=== PATIENT | female | born 1955 | race Caucasian/White ===

== ENCOUNTER 2018-08-05 20:46 | Emergency (ER) | payer MEDICAID ==
[~2018-08-05] VITALS: Wt 63.4 kg
[~2018-08-05 20:46] MED LIST: ASPI81TA52 PO; IBUP200C11 PO; MECL25TA2 PO; METF100010 PO; OMEP20CA16 PO
[2018-08-06] MEDS ORDERED: HYDROCODONE/APAP (5/325) TAB PO ONE (01:00)
[2018-08-06] MEDS ORDERED: IBUPROFEN 200 MG TAB PO ONE (01:00)
--- NOTE | 2018-08-06 01:01 | ERD ---
ER Documentation Chief Complaint Chief Complaint bib self, cc: fell at home while changing socks, has lower back pain, HPI 63-year-old female, with history of rheumatoid arthritis, presents the emergency department, complaining of mid upper back pain after sustaining a ground-level fall that occurred in her bathroom yesterday, while the patient was getting dressed. She landed on her back, hitting the border of the bathtub. The patient denies distal weakness, numbness or tingling, she has been taking Tylenol without improvement of the symptoms. ROS All systems reviewed and are negative except as per history of present illness. Medications Home Meds Active Scripts Ibuprofen* (Motrin*) 400 Mg Tab, 400 MG PO Q8, #15 TAB Prov:DALTON MYLES MD 08/06/18 Hydrocodone/Acetaminophen ([place] 5-325 Tablet) 1 Each Tablet, 1 TAB PO BID PRN for PAIN, #10 TAB Prov:DALTON MYLES MD 08/06/18 Meclizine Hcl* (Antivert*) 25 Mg Tablet, 25 MG PO Q6H PRN for dizziness, #20 TAB Prov:ALIX WASSERMAN MD 05/11/15 Reported Medications Aspirin (Low Dose Aspirin) 81 Mg Tablet.dr, 81 MG PO DAILY 05/11/15 Metformin Hcl* (Metformin Hcl*) 1,000 Mg Tablet, 1000 MG PO BID WITH MEALS, #30 TAB 05/11/15 Ibuprofen* (Advil*) 200 Mg Capsule, 200 MG PO Q6H PRN for PAIN, CAP 05/11/15 Omeprazole* (Omeprazole*) 20 Mg Capsule.dr, 20 MG PO DAILY, CAP 05/11/15 Allergies Allergies: Coded Allergies: No Known Allergy (Verified , 05/11/15) PMhx/Soc History of Surgery: Yes (GALLBLADDER SURGERY 12 YRS AGO) Hx Neurological Disorder: No Hx Respiratory Disorders: No Hx Cardiac Disorders: No Hx Miscellaneous Medical Probl: Yes (HIGH CHOLESTEROL, ARTHRITIS) Hx Alcohol Use: No Hx Substance Use: No Hx Tobacco Use: No FmHx Family History: diabetes; No coronary disease Physical Exam Vitals Vital Signs Date Temp Pulse Resp B/P (MAP) Pulse Ox O2 O2 Flow FiO2 Time Delivery Rate 08/06/18 98.1 69 18 128/73 96 Room Air 04:10 (91) 3/4/19 99.4 81 19 143/72 100 20:59 (95) Physical Exam Patient is in no acute distress, vital signs stable. Alert and fully oriented. EYES: PERRLA, EOMI, Sclera and conjunctiva appear normal. EARS: Canals clear, tympanic membranes WNL THROAT: Normal oropharynx. NECK: Supple, No lymphadenopathy. Full ROM without pain or tenderness. HEART: RRR, no rubs, murmurs, clicks or gallops. LUNGS: Clear to auscultation. ABDOMEN: Soft, non-tender without masses or hepatosplenomegaly. EXTREMITIES: No edema bilaterally. BACK: Normal inspection, no deformity, decreased range of motion for lateral rotation and flexion. Diffuse mid upper vertebral tenderness, bilateral lower muscle spasm. NEURO: Cranial nerves grossly intact, no motor or sensory deficit Results 24 hrs Current Medications Medications Dose Sig/Brendon Start Time Status Last (Trade) Ordered Route PRN Stop Time Admin Dose Reason Admin 1 tab ONCE ONCE 08/06/18 DC 08/06/18 Acetaminophen PO 01:00 08/06/18 01:14 / 01:08 Hydrocodone Bitart ([place] (5/325)) Ibuprofen 400 mg ONCE ONCE 08/06/18 DC 08/06/18 (Motrin) PO 01:00 08/06/18 01:14 01:08 DIAGNOSTIC IMAGING REPORT Patient: JAMIE MAGALLANES : 1955 Age: 63 Sex: F MR #: [id number] DOS: 08/06/18 0058 Ordering MD: DALTON MYLES MD Location: [facility] Room/Bed: PROCEDURE: CT thoracic spine without contrast CLINICAL INDICATION: Back pain after fall TECHNIQUE: Helically acquired axial CT images of the thoracic spine were obtained without intravenous contrast. Sagittal and coronal reformatted images were generated from the axial data set. Images were reviewed on the high- resolution PACS workstation. CTDIvol: 15.52 mGy DLP: 636.99 mGycm. DICOM images are available. One or more of the following dose reduction techniques were utilized: 1.) Automated exposure control 2.) Adjustment of the mA +/- kV according to patient's size 3.) Use of iterative reconstruction technique. COMPARISON: None. FINDINGS: Regional bones are demineralized. There is pronounced kyphotic curvature of the mid thoracic spine, otherwise no static subluxations or evidence of acute malalignment. Facet joints are appropriately aligned. There is anterior marginal spurring from the level of T3 - T11, including bridging anterior osteophytes from the level of T7 - T10. Subtle buckling of the anterior cortex at T4 raises suspicion for nondisplaced fracture. No significant loss of vertebral body height or bony retropulsion. There is no bony central canal or foraminal stenosis and no space occupying lesion is identified within the central canal. Paraspinous soft tissues are unremarkable. Imaged lungs are clear. Atherosclerotic calcifications noted at the aortic arch. Small hiatal hernia visualized. IMPRESSION: 1. Subtle buckling of the anterior cortex of T4 raises suspicion for subtle age indeterminate compression fracture. No appreciable loss of height at this level. Recommend correlation for pain and point tenderness. MRI may be useful to assess chronicity if clinically warranted. 2. No fractures identified within the lower thoracic spine. 3. Exaggerated thoracic kyphosis, otherwise no acute malalignment. 4. Osteopenia. Additional degenerative findings as detailed above. RPTAT: [facility] Physician Mireille Date Time Electronically viewed and signed by Physician Mireille on 08/06/2018 03:45 xB/ CC: DALTON MYLES MD [phone] Procedures/MDM At the time of discharge, patient nontoxic, ambulating, vital signs stable, no gross neurologic deficit. differential diagnosis include but not limited to: lumbar sprain/strain, sciatica, herniated disk, UTI less likely pyelo, kidney stone. Neurovascular exam grossly intact. no clinical findings suggestive of acute infectious process, no acute deformity, no edema, no rashes. Physical examination and clinical presentation consistent most likely with acute back injury without vertebral fracture per CT. During the ED course the patient received treatment with [place] and Motrin presenting overall improvement of the symptoms. Results and clinical impression discussed with the patient who agrees with management. The patient is stable to be treated outpatient and will be discharged home with recommendations and close monitoring The patient was instructed to follow up with the primary care provider in the next 48h. If symptoms persist, worsen or new symptoms develop, then patient should return to the ED immediately. Instructions explained and given to patient with acknowledgment and demonstrated understanding. Disclaimer: Inadvertent spelling and grammatical errors are likely due to EHR/di ctation software use and do not reflect on the overall quality of patient care. Also, please note that the electronic time recorded on this note does not necessarily reflect the actual time of the patient encounter. Departure Diagnosis: Primary Impression: Injury of back Condition: Stable Patient Instructions: Back Sprain/Strain Additional Instructions: Muchas wanda por [facility] para swift servicio. Esperamos que en swift visita a la kamilla de emergencia swift problema medico haya sido solucionado y que se sienta mucho mejor. Para estar seguros que swift mejoria sigue en proceso, le pedimos el favor de hacer jefe tosin de seguimiento medico con swift doctor primario en los proximos 2-4 humphrey. Lleve con usted estos documentos y las medicinas recetadas. Si thom sintomas empeoran, NO SE ESPERE, por favor regrese a kamilla de emergencia INMEDIATAMENTE. En jesus que usted no tenga un mdico de atencin primaria: Llame al mdico o clnica comunitaria de referencia que aparece abajo kb las horas de consultorio para hacer jefe tosin para que le vean. CLINICAS: [facility] [phone] [facility] [phone] [facility] [[email or web address] [phone] [place] [phone] [place] [phone] [place] [id number] [phone] MD Aug 06, 2018 01:01
[2018-08-06] MEDS ORDERED: IBUP-1561 PO (03:18)
[2018-08-06] MEDS ORDERED: HYDR-4011 PO (03:18)
[2018-08-06 04:10] VITALS: BP 128/73; PULSE 69; RESP 18
== END 2018-08-06 04:11 | disposition home or self-care (01) ==
LOC: FTE 20:46
DX: S39.92XA Unspecified injury of lower back, initial encounter (principal); W18.30XA Fall on same level, unspecified, initial encounter; Y92.002 Bathroom of unspecified non-institutional (private) residence as the place of occurrence of the external cause; Z79.84 Long term (current) use of oral hypoglycemic drugs; Z79.82 Long term (current) use of aspirin
CPT/HCPCS: 72128; Z7502; Z7610

== ENCOUNTER 2019-01-26 18:23 | Emergency (ER) | payer MEDICAID ==
[~2019-01-26] VITALS: Ht 152.4 cm; Wt 60.8 kg
[~2019-01-26 18:23] MED LIST changes: +HYDR-4011 PO; +IBUP-1561 PO; +TRAM50TA2 PO
[2019-01-26 18:25] VITALS: BP 144/89; PULSE 95; RESP 19; Ht 152.4 cm; Wt 60.8 kg
[2019-01-26] MEDS ORDERED: traMADol 50 MG TAB PO ONE (19:00)
== END 2019-01-26 19:51 | disposition home or self-care (01) ==
LOC: FTE 18:23
DX: S43.401A Unspecified sprain of right shoulder joint, initial encounter (principal); E11.9 Type 2 diabetes mellitus without complications; W18.39XA Other fall on same level, initial encounter; Y92.9 Unspecified place or not applicable; Z79.84 Long term (current) use of oral hypoglycemic drugs; Z79.82 Long term (current) use of aspirin
CPT/HCPCS: 73030; Z7502; Z7610